=== PATIENT | male | born 1990 ===

== ENCOUNTER 2021-01-02 20:33 | Emergency (ER) | payer OTHER ==
--- NOTE | 2021-01-02 23:25 | Emergency Department Report ---
ED General Adult HPI - General Chief complaint: Medical Clearance Stated complaint: TOOK EPI Time Seen by Provider: 01/02/21 23:03 Source: patient Mode of arrival: Ambulatory Limitations: No Limitations - History of Present Illness Initial comments: 30-year-old male with exercise-induced asthma/urticaria presents emerged department complaining of accidental injection of his EpiPen. He was trying to show his how to utilize the pen and thought he was using the test and it was found to be the actual epinephrine. After the injection about 2 hours prior to come to the emergency department he started to feel little bit jittery was wanted to be safe to make sure the there was no adverse events for him to wear he denies any chest pain, reports no headaches, no blurry vision, no numbness, no tingling, no chills. -: Gradual Improves with: none Worsens with: none Associated Symptoms: denies other symptoms - Related Data Allergies Allergy/AdvReac Type Severity Reaction Status Date / Time montelukast [From Singulair] Allergy Unknown Verified 01/02/21 20:38 ED Review of Systems ROS: Stated complaint: TOOK EPI Other details as noted in HPI Comment: All other systems reviewed and negative ED Past Medical Hx - Past Medical History Previous Medical History?: Yes Hx Asthma: Yes - Surgical History Past Surgical History?: No ED Physical Exam - General Limitations: No Limitations General appearance: alert, in no apparent distress - Head Head exam: Present: atraumatic, normocephalic - Eye Eye exam: Present: normal appearance, PERRL, EOMI Pupils: Present: normal accommodation - ENT ENT exam: Present: normal exam, normal orophraynx, mucous membranes moist, TM's normal bilaterally - Neck Neck exam: Present: normal inspection, full ROM - Respiratory Respiratory exam: Present: normal lung sounds bilaterally. Absent: respiratory distress, wheezes, rales, chest wall tenderness, accessory muscle use - Cardiovascular Cardiovascular Exam: Present: regular rate, normal rhythm. Absent: systolic murmur, diastolic murmur, rubs, gallop - GI/Abdominal GI/Abdominal exam: Present: soft, normal bowel sounds. Absent: tenderness, guarding, hyperactive bowel sounds, hypoactive bowel sounds - Rectal Rectal exam: Present: deferred - Extremities Exam Extremities exam: Present: normal inspection - Back Exam Back exam: Present: normal inspection - Neurological Exam Neurological exam: Present: alert, oriented X3 - Psychiatric Psychiatric exam: Present: normal affect, normal mood - Skin Skin exam: Present: warm, dry, intact, normal color. Absent: rash ED Course Vital Signs 01/02/21 20:34 Temperature 98.3 F Pulse Rate 93 H Respiratory 18 Rate Blood Pressure 146/85 [Right] O2 Sat by Pulse 100 Oximetry ED Medical Decision Making - Medical Decision Making 30-year-old male with exercise-induced asthma/urticaria presents emerged department complaining of accidental injection of his EpiPen. He was trying to show his how to utilize the pen and thought he was using the test and it was found to be the actual epinephrine. He reports feeling a little bit jittery but reports no chest pain, no dizziness, no blurred vision no shortness of breath please maintain stability while in emergency department no signs of any reaction injection took place about 2 hours prior to his visit to the emergency department Critical care attestation.: If time is entered above; I have spent that time in minutes in the direct care of this critically ill patient, excluding procedure time. 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 You may want to entertain Atarax 25 to 50 mg prior to activity to mitigate some of the symptoms Referrals: YOLA CALIX MD [Staff Physician] - 3-5 Days
[2021-01-03 00:12] VITALS: BP 115/73
== END 2021-01-03 00:13 | disposition home or self-care (01) ==
LOC: ED 20:33
DX: T44.5X1A Poisoning by predominantly beta-adrenoreceptor agonists, accidental (unintentional), initial encounter (principal); J45.909 Unspecified asthma, uncomplicated; X58.XXXA Exposure to other specified factors, initial encounter; Y93.89 Activity, other specified; Y92.89 Other specified places as the place of occurrence of the external cause; Y99.8 Other external cause status
CPT/HCPCS: 99282